=== PATIENT | male | born 1960 | race Caucasian/White ===

== ENCOUNTER 2020-11-12 07:18 | Day surgery (SDC) | payer OTHER, SELFPAY ==
[~2020-11-12] VITALS: Ht 180.3 cm; Wt 100.2 kg
[~2020-11-12 07:18] MED LIST: CHOL10003 PO; LEVO150T5 PO; MELO15TA24 PO; PRAV40TA2 PO
[2020-11-12 07:50] VITALS: BP 117/64
[2020-11-12] MEDS ORDERED: CHLORHEXIDINE 15 ML UDC MM ONE (08:00)
[2020-11-12] MEDS ORDERED: LACTATED RINGERS 1,000 ML IV SCH (08:00)
[2020-11-12] MEDS ORDERED: FENTANYL PF 250 MCG/5ML ONE (09:37)
[2020-11-12] MEDS ORDERED: KETOROLAC 30 MG/1 ML ONE (09:50)
[2020-11-12] MEDS ORDERED: LIDOCAINE-MPF 2% ,5ML ONE (09:50)
[2020-11-12] MEDS ORDERED: PROPOFOL 10 MG/ML, 20ML ONE (09:50)
[2020-11-12] MEDS ORDERED: CEFAZOLIN 1,000 MG ONE ×2 (09:50→10:47)
[2020-11-12] MEDS ORDERED: DEXAMETHASONE 4 MG/ML, 1ML ONE (09:50)
[2020-11-12] MEDS ORDERED: ROCURONIUM 10MG/ML,5ML ONE (09:50)
[2020-11-12] MEDS ORDERED: ONDANSETRON 2MG/ML, 2ML ONE (09:50)
[2020-11-12] MEDS ORDERED: SUCCINYLCHOLINE 20 MG/ML, 10ML ONE (09:50)
[2020-11-12] MEDS ORDERED: PHENYLEPHRINE 10 MG/ML ONE (09:50)
[2020-11-12] MEDS ORDERED: METHOCARBAMOL 1,000 MG in DEXTROSE 5% 100 ML IV PRN (11:00)
[2020-11-12] MEDS ORDERED: ONDANSETRON 2MG/ML, 2ML IVPush PRN (11:00)
[2020-11-12] MEDS ORDERED: OXYcodone 5 MG/5 ML ORAL.SOL UDC PO PRN (11:00)
[2020-11-12] MEDS ORDERED: LABETALOL 5MG/ML, 20ML IV PRN (11:00)
[2020-11-12] MEDS ORDERED: LORazepam 2 MG/ML, 1ML IVPush PRN (11:00)
[2020-11-12] MEDS ORDERED: MEPERIDINE/PF 25MG/0.5ML IVPush PRN (11:00)
[2020-11-12] MEDS ORDERED: HYDROmorphone 1 MG/ML, 1ML INJ IVPush PRN (11:00)
[2020-11-12] MEDS ORDERED: ONDANSETRON 2MG/ML, 2ML IV PRN (11:00)
[2020-11-12] MEDS ORDERED: ACETAMINOPHEN 325 MG TABLET PO PRN (11:00)
[2020-11-12] MEDS ORDERED: EPHEDRINE 50 MG/ML, 1ML IVPush PRN (11:00)
[2020-11-12] MEDS ORDERED: PROMETHAZINE 25 MG/ML, 1ML IVPush PRN (11:00)
[2020-11-12] MEDS ORDERED: hydrALAzine 20 MG/ML, 1ML IV PRN (11:00)
[2020-11-12] MEDS ORDERED: HYDROcodone/APAP 5/325 TABLET PO PRN (11:00)
[2020-11-12] MEDS ORDERED: FENTANYL PF 100 MCG/2ML IV PRN (11:00)
== END 2020-11-12 14:20 | disposition home or self-care (01) ==
LOC: OUT 07:18
PROVIDERS: ATTEND Urology
DX: N20.0 Calculus of kidney (principal); N40.0 Benign prostatic hyperplasia without lower urinary tract symptoms
CPT/HCPCS: 52353; 82360; 88300; J0330; J0690; J1100; J1885; J2370; J2405; J2704; J3010; J7120; C1769